=== PATIENT | male | born 2000 | race Two or more races ===

== ENCOUNTER 2024-04-11 23:58 | Emergency (ER) | payer MEDICAID ==
[~2024-04-11] VITALS: Ht 170.2 cm; Wt 104.5 kg
[2024-04-12 00:10] VITALS: BP 140/86; PULSE 89; O2SAT 97
[2024-04-12] MEDS ORDERED: PENI500T2 PO (01:16)
[2024-04-12] MEDS ORDERED: HYDR-3965 PO (01:17)
[2024-04-12 01:27] VITALS: TEMP 98.9
[2024-04-12] MEDS: PENICILLIN V POTASSIUM 250 MG/5 ML oral suspension PO SCH (01:31)
[2024-04-12 01:34] VITALS: RESP 14
[2024-04-12] MEDS: dexamethasone 4mg tablet PO ONE (01:34)
[2024-04-12] MEDS: HYDROcodone/acetaminophen 5mg/325mg tablet PO ONE (01:34)
== END 2024-04-12 01:44 | disposition home or self-care (01) ==
LOC: ER 04-12
DX: J02.9 Acute pharyngitis, unspecified (principal)
CPT/HCPCS: 99284

== ENCOUNTER 2024-09-11 05:40 | Emergency (ER) | payer MEDICAID ==
[~2024-09-11] VITALS: Ht 170.2 cm; Wt 109.1 kg
[2024-09-11 05:42] VITALS: BP 136/84; PULSE 84; RESP 19; TEMP 98.2; O2SAT 98
--- NOTE | 2024-09-11 07:35 | Physician Documentation ---
History of Present Illness ~ Chief Complaint: Neck pain Stated Complaint: NECK PAIN Time Seen by MD: 06:59 HPI 24-year-old male presenting with neck pain for the past two days. He states that yesterday he woke up and had significant pain in his neck. He states that it felt very tight in any attempted movement of the neck would worsen the pain. The pain is bilateral on both sides of his neck and does not radiate. Denies any numbness or tingling in his extremities. Denies any other associated symptoms. Denies any trauma. Medication Reconciliation Allergies: Coded Allergies: No Known Allergies (Unverified , 09/11/24) Past Medical History Past Medical History: No Pertinent History Review of Systems All Other Systems at this time: Reviewed and Negative Physical Exam Vital Signs: Temperature: 98.2, Source: Oral, Heart Rate: 84, Respiratory Rate: 19, BP: 136/84, Pulse Oximetry: 98, Weight: 109.090 Physical Exam I have reviewed the triage vitals. CONST: Well developed and well nourished. In no acute distress HENT: Head Atraumatic EYES: Pupils are equal, round and reactive to light. Normal conjunctiva NECK: Normal appearance of the neck. There is tenderness to palpation over the bilateral cervical paraspinal muscles. Pain is elicited by flexion, extension and rotation of the neck. No midline cervical tenderness. Spurling's sign is negative bilaterally. CARDIO: Normal rate and regular rhythm. No murmurs, rubs, or gallops. S1, S2. PULM/CHEST: No respiratory distress. Lungs clear to auscultation. No wheeze ABD: Soft and nontender. Nondistended. Bowel sounds normal. No guarding. : Exam deferred MSK: No edema. No deformity. NEURO: Alert and oriented to person, place and time. Moving all extremities SKIN: Warm and dry. PSYCH: Normal mood and affect. Good eye contact. Progress Results/Orders Results/Orders Vital Signs 09/11/24 05:42 Temp 98.2 Pulse 84 Resp 19 B/P (MAP) 136/84 Pulse Ox 98 Medical Decision Making Additional Comment 24-year-old male presenting with what appears to be a cervical muscle strain. There has been no trauma to indicate any imaging to be done at this time. Furthermore he has no other concerning symptoms such as fevers, chills or radiculopathy. I advised the patient that this is likely a muscle strain and it should resolve with time. I advised him that he can take ibuprofen or Tylenol as needed for pain control. Advised some rest for a couple of days and monitoring for improvement and resolution. Return to the ED with any acutely worsening symptoms. Departure Disposition: HOME / SELF CARE / HOMELESS Impression: Primary Impression: Cervical muscle strain Condition: Stable Referrals: NO PRIMARY CARE PROVIDER (PCP) Comments Take ibuprofen 600 mg every 6 hours as needed for pain. Advise rest and m onitoring for improvement. Follow up with primary care physician or return to the emergency department with worsening symptoms. Signature Scribe Signature: 1 Attestation: 1 PIPO VIEIRA MD Sep 11, 2024 07:35
== END 2024-09-11 07:39 | disposition home or self-care (01) ==
LOC: ER 05:41
DX: S16.1XXA Strain of muscle, fascia and tendon at neck level, initial encounter (principal); X58.XXXA Exposure to other specified factors, initial encounter; Y93.89 Activity, other specified; Y92.89 Other specified places as the place of occurrence of the external cause; Y99.8 Other external cause status
CPT/HCPCS: 99282